=== PATIENT | female | born 1960 | race Caucasian/White ===

== ENCOUNTER 2024-11-12 07:29 | Emergency (ER) | payer OTHER, SELFPAY ==
--- NOTE | 2024-11-12 | CRLHL7_ITS ---
For Patients: As a result of the Cures Act, medical imaging exams and procedure reports are released immediately into your electronic medical record. You may view this report before your referring provider. If you have questions, please contact your health care provider. Indication: Injury Technique: A total of three-view of the left hand were acquired. Comparison: None Findings: Bones: The oblique and lateral views are suboptimal. Based on the images presented, there is no obvious fracture. Consider repeating the lateral and oblique views for strong clinical index of concern Joint spaces: No dislocation. 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 Impression: The oblique and lateral views are suboptimal. Based on the images presented, there is no obvious fracture, dislocation or destructive process. Consider repeating the lateral and oblique views for strong clinical index of concern for fracture. Dictated by El Viera MD @ 11/12/2024 8:46:50 AM (Electronically Signed)
[2024-11-12 07:47] VITALS: BP 121/70; PULSE 63; RESP 18; TEMP 35.7; O2SAT 98; BMI 26.3
--- NOTE | 2024-11-12 07:53 | CRLHL7_ITS ---
For Patients: As a result of the Century Cures Act, medical imaging exams and procedure reports are released immediately into your electronic medical record. You may view this report before your referring provider. If you have questions, please contact your health care provider. INDICATION: Injury COMPARISON: There are no prior studies for comparison TECHNIQUE: CT examination of the head was performed as axial sections without intravenous contrast. Images were obtained from the vertex of the skull through the skull base. Please note that all CT scans at this facility use dose modulation, iterative reconstruction, and/or weight-based dosing when appropriate to reduce radiation dose to as low as reasonably achievable. FINDINGS: The brain shows no sign of mass lesion, mass effect, hemorrhage, or edema. There are involutional changes. There is moderate cortical atrophy and there is moderate white matter disease. There is no hydrocephalus. The visualized portions of the orbits are normal in appearance. The osseous structures are normal in appearance with no sign of abnormality in the skull base or calvarium. Left frontal encephalomalacia likely related to remote infarct Left frontal subcutaneous hematoma IMPRESSION: Involutional changes consistent with atrophy and white matter disease. Left frontal encephalomalacia likely related to remote infarct. Subcutaneous hematoma left frontal area. No calvarial fracture. No acute intracranial posttraumatic findings. Please note that all CT scans at this facility use dose modulation, iterative reconstruction, and/or weight-based dosing when appropriate to reduce radiation dose to as low as reasonably achievable. Dictated by El Viera MD @ 11/12/2024 8:34:55 AM (Electronically Signed)
--- NOTE | 2024-11-12 08:06 | CRLHL7_ITS ---
For Patients: As a result of the Century Cures Act, medical imaging exams and procedure reports are released immediately into your electronic medical record. You may view this report before your referring provider. If you have questions, please contact your health care provider. Indication: Left frontal hematoma. Assess for facial or orbital fracture Technique: CT examination of the facial bones was performed. Imaging was acquired in the axial plane. The study was acquired from above the frontal sinuses through below the hyoid bone. Sagittal and coronal reformatted imaging was performed. Comparison: None prior to today Findings: Left frontal subcutaneous hematoma. No fracture identified involving the visualized calvarium, orbits or facial bones. No significant sinus inflammatory disease. Incidental findings include atherosclerotic vascular calcifications. There is also cerumen impacted in the left external auditory canal Impression: 1. Left subcutaneous frontal region hematoma. 2. No calvarial, orbital or facial region fracture. 3. No significant sinus inflammatory disease. 4. Cerumen impaction in the left external auditory canal. 5. Atherosclerotic vascular calcifications Please note that all CT scans at this facility use dose modulation, iterative reconstruction, and/or weight-based dosing when appropriate to reduce radiation dose to as low as reasonably achievable. Dictated by El Viera MD @ 11/12/2024 8:38:31 AM (Electronically Signed)
--- NOTE | 2024-11-12 08:08 | ED.GENADULT ---
HPI - General Adult General Date Seen: 11/12/24 Chief complaint: Fall/Minor Trauma Stated complaint: Fell left side of face and foot bleeding Time Seen by Provider: 11/12/24 08:05 Source: patient Mode of arrival: ambulatory Limitations: no limitations History of Present Illness HPI narrative: Patient is a 64-year-old female presenting to emergency department after a fall. 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 States the past couple weeks she has been having issues with intermittent lightheadedness. States the days she will be walking feel lightheaded in the will need to catch herself before she falls. States this has happened in the past but not nearly this frequent. She states she did speak to her primary care provider about it away states the could be due to blood pressure. She is currently on lisinopril. At this time she feels asymptomatic. Denies any cardiac abnormalities but does states she has had 2 previous strokes with no residual deficits. Today while she was walking of a truck. She got lightheaded causing her to fall. She denies loss of consciousness. Denies any neck pain. States all her pain is in her left hand. Does also have abrasions to her left forehead. Patient states she feels completely back to normal at this time other than the pain from the fall. No other concerns noted. Related Data Home Medications ?Medication ?Instructions ?Recorded ?Confirmed lisinopril 20 mg tablet (Zestril) 20 mg PO DAILY 11/12/24 11/12/24 Allergies Allergy/AdvReac Type Severity Reaction Status Date / Time Penicillins Allergy Intermediate Hives Verified 11/12/24 07:44 azithromycin AdvReac Unknown Verified 11/12/24 07:44 Review of Systems Status of ROS: Reports: 10 or more systems reviewed and unremarkable except as noted in History and below Exam Narrative: Exam Narrative: Const: Well-nourished, Well-developed, in mild distress Eyes: PERRL, no conjunctival injection, and symmetrical lids HENT: Atraumatic external nose and ears. Moist mucous membranes. Neck: Symmetric, trachea midline, No thyromegaly. CVS: RRR, No murmurs or gallops. Peripheral pulses 2+ and equal in all extremities RESP: Unlabored respiratory effort. Clear to auscultation bilaterally. GI: Nontender/Nondistended, No rebound or guarding. MSK:Extremities w/o deformity, Normal Active ROM, bruising and swelling to the left hand at the base of the 5th metacarpal along the tenderness throughout the hand. Full range of motion of neck with no midline step-offs or tenderness. Skin: Warm, Dry. Abrasion noted to left forehead. Neuro: Normal Muscle tone, No focal neurological deficits. Psych: Awake, Alert, & Oriented x3. Appropriate mood and affect. Const: Vital Signs, click to edit/add: Vital Signs - 24 hr 11/12/24 07:47 11/12/24 09:02 Temperature 96.3 F L Pulse Rate [Pulse Oximeter] 63 Respiratory Rate 18 Blood Pressure [Ri t Upper Arm] 121/70 Blood Pressure [or thostatic lying] 188/73 H Blood Pressure [or thostatic sitting] 168/67 H Blood Pressure [or thostatic standing ] 140/74 H Pulse Oximetry 98 Oxygen Delivery Me thod Room Air Course Vital Signs Vital signs: Initial Vital Signs Temperature 96.3 F L 11/12/24 07:47 Temperature Source Temporal Artery Scan 11/12/24 07:47 Pulse Rate 63 11/12/24 07:47 Respiratory Rate 18 11/12/24 07:47 Blood Pressure 121/70 11/12/24 07:47 Blood Pressure Mean 87 11/12/24 07:47 Pulse Oximetry 98 11/12/24 07:47 Oxygen Delivery Method Room Air 11/12/24 07:47 Vital Signs Temperature 96.3 F L 11/12/24 07:47 Pulse Rate 63 11/12/24 07:47 Respiratory Rate 18 11/12/24 07:47 Blood Pressure 121/70 11/12/24 07:47 Pulse Oximetry 98 11/12/24 07:47 Oxygen Delivery Method Room Air 11/12/24 07:47 Temperature 96.3 F L 11/12/24 07:47 Pulse Rate 63 11/12/24 07:47 Respiratory Rate 18 11/12/24 07:47 Blood Pressure 168/67 H 11/12/24 09:02 Pulse Oximetry 98 11/12/24 07:47 Oxygen Delivery Method Room Air 11/12/24 07:47 Medical Decision Making MDM Narrative Medical decision making narrative: Patient is a 64-year-old female presenting to the emergency department after a fall due to near syncope. Will do further workup to look for signs of electrolyte abnormalities, cardiac abnormalities, orthostatic hypotension. Percutaneous C-spine rules we do not need to scan her cervical spine. Will do CT scan of her head and facial bones low. Will also x-ray her left hand. No other injuries noted. BMP, CBC, troponin, magnesium, EKG all ordered. CT scans were head and facial bones showed no acute concerning abnormalities. X-ray of the left hand did return showing no acute fractures but report does state it is suboptimal view. Recommends repeat imaging of the strong concern of fracture. Considering the patient is tender both the dorsal and volar aspect and the same spot I will redo x-rays. Orthostatic blood pressure showed her blood pressure dropped from the 180s down to the 140s systolic but she was asymptomatic during this. She was offered IV fluids but states she does wants to drink water at this time. Her lab work returned showing no acute concerning abnormalities. EKG does show a sinus bradycardia with a rate of 52 beats per minute. When her heart rate was checked other times is in the 60s. Unsure she is having episodes of bradycardia causing the symptoms but I would not expect a heart rate in the 50s to cause syncope. I did speak to her about talking to her primary care provider again about her heart rate and blood pressure. She states she agrees with this plan. Repeat imaging shows no concerning findings and she is safe to follow-up. Lab Data Labs: Lab Results 11/12/24 Range/Units 08:30 WBC 11.64 H (4.50-11.00) K/uL RBC 5.17 (4.00-5.20) m/uL Hgb 15.1 (12.0-16.0) gm/dL Hct 45.6 (33.0-51.0) % MCV 88 (80-100) fL MCH 29 (26-34) pg MCHC 33 (32-36) gm/dL RDW Coeff of Ariana 14.6 (11.5-15.5) % Plt Count 314 (140-440) K/uL Neut % (Auto) 76.7 H (42.0-72.0) % Lymph % (Auto) 15.6 L (20-44) % [place] % (Auto) 5.4 (0.0-11.0) % Eos % (Auto) 1.1 (0.0-7.0) % Baso % (Auto) 0.6 (0.0-3.0) % Neut # (Auto) 8.90 H (1.7-7.0) K/uL Lymph # (Auto) 1.80 (0.90-2.90) K/uL [place] # (Auto) 0.60 (0.00-0.90) K/UL Eos # (Auto) 0.10 (0.00-0.50) K/uL Baso # (Auto) 0.10 (0.00-0.30) K/uL Abs Immat Gran (auto) 0.10 (0.00-0.30) K/uL Imm/Tot Granulo (auto) 0.6 % Sodium 139 (135-149) mmol/L Potassium 4.6 (3.6-5.1) mmol/L Chloride 106 (96-114) mmol/L Carbon Dioxide 28 (20-32) mmol/L Anion Gap 5 L (7-15) mEq/L BUN 14 (7-30) mg/dL Creatinine 0.7 (0.5-1.5) mg/dL Estimated Creat Clear 57.33 Estimated GFR 97 ml/min Glucose 210 H (60-115) mg/dL Calcium 9.9 (8.4-10.6) mg/dL Magnesium 2.0 (1.5-2.6) mg/dL Troponin I 0.01 (0.01-0.04) ng/mL Imaging Data CT scan - head: Attestation: I have reviewed the pertinent imaging results. Radiologist's impression: Involutional changes consistent with atrophy and white matter disease. Left frontal encephalomalacia likely related to remote infarct. Subcutaneous hematoma left frontal area. No calvarial fracture. No acute intracranial posttraumatic findings. Please note that all CT scans at this facility use dose modulation, iterative reconstruction, and/or weight-based dosing when appropriate to reduce radiation dose to as low as reasonably achievable. Dictated by El Viera MD @ 11/12/2024 8:34:[address] scan face: Attestation: I have reviewed the pertinent imaging results. Radiologist's impression: 1. Left subcutaneous frontal region hematoma. 2. No calvarial, orbital or facial region fracture. 3. No significant sinus inflammatory disease. 4. Cerumen impaction in the left external auditory canal. 5. Atherosclerotic vascular calcifications Please note that all CT scans at this facility use dose modulation, iterative reconstruction, and/or weight-based dosing when appropriate to reduce radiation dose to as low as reasonably achievable. Dictated by El Viera MD @ 11/12/2024 8:38:31 AM Initial left hand x-ray: Attestation: I have reviewed the pertinent imaging results. Radiologist's impression: The oblique and lateral views are suboptimal. Based on the images presented, there is no obvious fracture, dislocation or destructive process. Consider repeating the lateral and oblique views for strong clinical index of concern for fracture. Dictated by El Viera MD @ 11/12/2024 8:46:50 AM ----- ADDENDUM ----- The patient returned to have the lateral and oblique views of the left and repeated. Given the additional views, there is no evidence of acute fracture, dislocation or destructive process. There is osteoarthritis. Dictated by El Viera MD @ Nov 12 2024 9:35AM ECG Data Attestation: I personally reviewed and interpreted this ECG as follows: Prior ECG tracings: not available for review Interpretation: Sinus bradycardia with a rate of 52 beats per minute, normal intervals, normal axis, no ST or T-wave abnormalities. Discharge Plan Discharge Clinical Impression: Near syncope, Abrasion, Sprain and strain of left hand Patient Disposition: Home, Self-Care Condition: Stable Instructions: Near Syncope (ED) Additional Instructions: I do recommend having close follow-up with your primary care provider about to return to low heart rate and the drop in the blood pressures when you stand up. I do not think these are emergent at this time but is very important you do follow-up. Return to emergency department for new or worsening symptoms. If your hand continues to hurt do recommend repeat imaging in 7 days as sometimes small fractures do not show up right away. Prescriptions: No Action lisinopril [Zestril] 20 mg tablet 20 mg PO DAILY Follow Up/Referrals: Provider,Not a Local [Primary Care Provider, Family Practice] Stand Alone Forms: [employer] Info Instructions
[2024-11-12 08:40] LABS: Hematocrit* 45.6 % (33.0-51.0); Hemoglobin* 15.1 gm/dL (12.0-16.0); Immature Granulocytes Pct Auto 0.6 %; Mean Corpuscular HGB Conc 33 gm/dL (32-36); Mean Corpuscular Hemoglobin 29 pg (26-34); Mean Corpuscular Volume 88 fL (80-100); RDW Coefficient of Variation % 14.6 % (11.5-15.5); Red Blood Count* 5.17 m/uL (4.00-5.20); White Blood Count* 11.64 K/uL (4.50-11.00)
[2024-11-12 08:43] LABS: Immature Granulocytes Abs Auto 0.10 K/uL (0.00-0.30); Lymphocytes Absolute Auto 1.80 K/uL (0.90-2.90); Slide Review Reflex No
[2024-11-12 08:51] LABS: Chloride* 106 mmol/L (96-114); Sodium* 139 mmol/L (135-149)
[2024-11-12 08:52] LABS: Potassium* 4.6 mmol/L (3.6-5.1)
[2024-11-12 08:55] LABS: Anion Gap 5 mEq/L (7-15); Blood Urea Nitrogen* 14 mg/dL (7-30); Calcium* 9.9 mg/dL (8.4-10.6); Carbon Dioxide* 28 mmol/L (20-32); Creatinine* 0.7 mg/dL (0.5-1.5); Est. Creatinine Clearance* 57.33; Estimated Glomerular Filt Rate 97 ml/min; Glucose* 210 mg/dL (60-115)
[2024-11-12 09:02] VITALS: BP 140/74; BP 168/67; BP 188/73
== END 2024-11-12 10:20 | disposition home or self-care (01) ==
PROVIDERS: Emergency Provider Student in an Organized Health Care Education/Training Program
DX: R55 Syncope and collapse (principal); S63.92XA Sprain of unspecified part of left wrist and hand, initial encounter; S00.81XA Abrasion of other part of head, initial encounter; W19.XXXA Unspecified fall, initial encounter
CPT/HCPCS: 36415; 70450; 70486; 73120; 73130; 80048; 83735; 84484; 85025; 93005; 99284; 99285